=== PATIENT | male | born 1995 | race Caucasian/White ===

== ENCOUNTER 2017-11-23 14:26 | Emergency (ER) | payer SELFPAY ==
[~2017-11-23] VITALS: Ht 172.7 cm; Wt 80.0 kg
[2017-11-23 14:28] VITALS: BP 138/85; PULSE 69; RESP 16; TEMP 98.7; O2SAT 99
[2017-11-23] MEDS ORDERED: LIDOCAINE 1%/EPINEPHrine 1:100,000 SOLN 20 ML VIAL INFIL ONE (16:30)
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
== END 2017-11-23 16:53 | disposition home or self-care (01) ==
LOC: NEPD 14:26
DX: S01.01XA Laceration without foreign body of scalp, initial encounter (principal); W22.8XXA Striking against or struck by other objects, initial encounter
CPT/HCPCS: 12011

== ENCOUNTER 2018-03-01 09:39 | Emergency (ER) | payer OTHER ==
[2018-03-01 09:41] VITALS: BP 153/56; PULSE 95; RESP 16; TEMP 99.1; O2SAT 98
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
== END 2018-03-01 10:23 | disposition home or self-care (01) ==
LOC: NEPD 09:39
DX: H72.92 Unspecified perforation of tympanic membrane, left ear (principal)
CPT/HCPCS: 99282